=== PATIENT | male | born 1955 | race Caucasian/White ===

== ENCOUNTER 2017-02-13 14:35 | Outpatient (CLI) | payer OTHER ==
[2016-01-04 17:30] VITALS: BP 142/70
[2017-02-13 14:53] LABS: BASOPHILS % 0.4 (0.0-1.5); EOSINOPHILS % 0.4 % (0.0-6.8); MEAN CORPUSCULAR HEMOGLOBIN 29.1 pg (28.0-34.0); MEAN CORPUSCULAR VOLUME 85.6 fl (80.0-100.0); MONOCYTES % 3.9 % (0.0-11.0); NEUTROPHILS # 8.5 # k/uL (1.4-7.7)
[2017-02-13 15:10] LABS: eGFR (African) > 60; eGFR (Non-African) > 60
== END 2017-02-13 14:36 ==
LOC: LAB 14:35
PROVIDERS: ATTEND Physician Assistant
DX: R42 Dizziness and giddiness (principal)
CPT/HCPCS: 36415; 80053; 84484; 85025